=== PATIENT | male | born 1965 | race Caucasian/White ===

== ENCOUNTER → 2018-01-15 19:35 | Outpatient (CLI) | payer MEDICAID ==
[2010-07-27 09:13] VITALS: BMI 31.3
== END | disposition home or self-care (01) ==
LOC: D.SLEEP 08:00
DX: G47.33 Obstructive sleep apnea (adult) (pediatric) (principal)

== ENCOUNTER 2018-04-16 12:50 | Emergency (ER) | payer OTHER ==
[~2018-04-16] VITALS: Ht 190.5 cm; Wt 130.5 kg
[2018-04-16 12:57] VITALS: Ht 190.5 cm; Wt 130.5 kg
[2018-04-16] MEDS ORDERED: NEXIUM20 MG PO (13:07)
[2018-04-16] MEDS ORDERED: HYDROCHLOROTHIA25 MG PO (13:07)
[2018-04-16] MEDS ORDERED: PRINIVIL20 MG PO (13:07)
[2018-04-16] MEDS ORDERED: BAYER CHEWABLE81 MG PO (13:08)
[2018-04-16] MEDS ORDERED: FISH OIL 1,0001 CA1 PO (13:08)
[2018-04-16] MEDS ORDERED: GLUCOSAMINE HC500 MG (13:08)
[2018-04-16] MEDS ORDERED: AXIRON30 MG/1.5 (13:09)
[2018-04-16 13:51] LABS: BASOPHILS 0.7 % (0-2); EOSINOPHILS 2.3 % (0-7); HEMATOCRIT 42.7 % (42.0-54.0); HEMOGLOBIN 14.8 g/dL (13.5-17.5); IMMATURE GRANULOCYTES 0.3 % (0-5); LYMPHOCYTES 33.6 % (15-50); MCH 31.2 pg (26.0-34.0); MCHC 34.7 g/dL (31.0-37.0); MCV 90.1 fL (80.0-100.0); MEAN PLATELET VOLUME 11.7 fL (7.4-10.4); MONOCYTES 6.2 % (2-11); NEUTROPHILS 56.9 % (40-80); PLATELET COUNT 168 10x3/uL (130-400); RBC 4.74 10x6/uL (4.20-6.10); RDW 13.5 % (11.5-14.5); WBC 7.1 10x3/uL (4.8-10.8)
[2018-04-16 14:00] LABS: APTT 27.3 SECONDS (22.8-39.4); INR 1.01 (0.85-1.17); PROTIME 12.9 SECONDS (11.6-15.0)
[2018-04-16 14:05] LABS: ALBUMIN 3.8 g/dL (3.4-5.0); ALKALINE PHOSPHATASE 49 U/L (46-116); ALT (SGPT) 39 U/L (10-68); BILIRUBIN - TOTAL 0.41 mg/dL (0.2-1.3); CALC OSMOLALITY 277 mosm/kg (275-300); CALCIUM 9.4 mg/dL (8.5-10.1); CARBON DIOXIDE 24.9 mmol/L (21.0-32.0); CHLORIDE - SERUM 101 mmol/L (98-107); CREATININE - SERUM 1.1 mg/dL (0.6-1.3); GLUCOSE 143 mg/dL (74-106); POTASSIUM - SERUM 3.7 mmol/L (3.5-5.1); PROTEIN - SERUM 7.2 g/dL (6.4-8.2); SODIUM 138 mmol/L (136-145); UREA NITROGEN 13 mg/dL (7-18); eGFR NON AFRICAN AMERICAN 75 mL/min (90-120)
[2018-04-16 14:16] LABS: CKMB 1.6 U/L (0.0-3.6); CREATINE KINASE 210 UL (21-232)
[2018-04-16 14:22] LABS: TROPONIN-I < 0.017 ng/mL (0.000-0.060)
[2018-04-16 16:27] VITALS: BP 130/87
== END 2018-04-16 16:31 | disposition home or self-care (01) ==
LOC: D.ER 12:50
PROVIDERS: Emergency Medicine
DX: R06.00 Dyspnea, unspecified (principal); K21.9 Gastro-esophageal reflux disease without esophagitis

== ENCOUNTER 2018-04-22 11:41 | Outpatient (CLI) | payer OTHER ==
[~2018-04-22] VITALS: Ht 190.5 cm; Wt 130.5 kg
--- NOTE | ~2018-04-22 | OP ---
PATIENT NAME: HUGO JOHNSON MEDICAL RECORD: [id number] :69 LOCATION:D.CAT ADMISSION DATE: SURGEON: MEETA COVARRUBIAS MD DATE OF OPERATION: 04/22/2018 PROCEDURE: Left heart catheterization, selective coronary angiography, right radial approach. CATHETERS: Radial sheath, Addington catheter. The procedure was well tolerated. The patient returned to the [place]. Sheath was removed. TR band was placed. FINDINGS: Left ventriculography in 30-degree REAL view: Normal wall motion and normal systolic function. CORONARY ANATOMY: LEFT MAIN: Left main is free of disease. LAD: Free of disease in the diagonal system. CIRCUMFLEX: Free of disease in the marginal system. RIGHT CORONARY ARTERY: Dominant artery, gives rise to PDA, free of disease. IMPRESSION: Normal LV systolic function, normal coronary anatomy, noncardiac cause of dyspnea. TRANSINT:[id number] Voice Confirmation ID: [id number] DOCUMENT ID: [id number] MEETA COVARRUBIAS MD CC: [id number] DICTATION DATE: 04/22/18 1528 VOICE ENGINEER: 04/22/18 1629 [facility] [address] [id number]
--- NOTE | ~2018-04-22 | HEMODYNAMI ---
PATIENT:HUGO JOHNSON MEDICAL RECORD: [id number] : 69 LOCATION:D.CAT ADMISSION DATE: 04/22/18 Generatedon:04/22/201815:21 Patient name: HUGO JOHNSON Patient #: [id number] SSN: : 1965 Date of study: 04/22/2018 Page: Of Hemodynamic Procedure Report Patient Data Patient Demographics Procedure consent was obtained First Name: HUGO Gender: Male Last Name: ALEX : 1965 [facility] Initial: NIXON Age: 52 year(s) Patient #: [id number] Race: Unknown Additional ID: [id number] Contact details [address]: [address] [place] [address] rd State: [place] City: [place] Zip code: [address] Past Medical History Allergies: No known allergies Admission Admission Data Admission Date: 04/22/2018 Admission Time: 11:41 Admit Source: Other Height (in.): 73 BSA: 2.48 (m2) Height (cm.): 185.42 BMI: 36.94 (kg/m2) Weight (lbs.): 280 Weight (kg.): 127.01 Lab Results Lab Result Date: 04/22/2018 Lab Result Time: 0:00 Biochemistry Name Units Result Min Max BUN mg/dl 20 --(----)*- 7 18 Creatinine mg/dl 1.2 --(---*)-- 0.6 1.3 CBC Name Units Result Min Max Hemoglobin g/dl 15.1 --(-*--)-- 13.5 17.5 Procedure Procedure Types Cath Procedure Diagnostic Procedure [facility] w/Coronaries Sedation Charges Moderate Sedation up to 15 minutes Procedure Description Procedure Date Procedure Date: 04/22/2018 Procedure Start Time: 15:11 Procedure End Time: 15:20 Procedure Staff Name Function Yifan Medina MD Performing Physician Crow Seo RT Monitor Renetta Gallardo RT Scrub Yadi Pichardo RN Nurse Precious Gilmore RN Nurse Procedure Data Cath Procedure Fluoroscopy Diagnostic fluoroscopy Total fluoroscopy Time: 1.1 time: 1.1 min min Diagnostic fluoroscopy Total fluoroscopy dose: 486 dose: 486 mGy mGy Contrast Material Contrast Material Type Amount (ml) Isovue 300 54 Entry Location Entry Primary Successful Side Size Upsize Upsize Entry Closure Leiva ccessful Closure Location (Fr) 1 (Fr) 2 (Fr) Remarks Device Remarks Radial Right 6 Fr Mechanical artery Short Compression Estimated blood loss: 5 ml Diagnostic catheters Device Type Used For End Catheter Placement DIAGNOSTIC Damariscotta 110cm 5 Procedure Fr catheter ([id number]) Procedure Complications No complications Procedure Medications Medication Administration Route Dosage 0.9% NaCl I.V. 100 ml/hr Oxygen etCO2 Nasal cannula 2 l/min Lidocaine 2% added to field 20 Heparin Flush Bag added to field 2 bags (1000units/500ml NS) Versed I.V. 2 mg Fentanyl I.V. 50 mcg Radial Cocktail added to field 1 syringe (Verapomil 2mg/Nitro 400mcg/Heparin 1500units) Versed I.V. 1 mg Hemodynamics Rest BSA: 2.48 (m2) HGB: 15.1 (g/dl) O2 Consumption: Estimated: 309.82 (ml/min) O2 Co nsumption indexed: Estimated:124.93 (ml/min/m) Heart Rate: 84 (bpm) Pressure Samples Time Site Value (mmHg) Purpose Heart Use Rate(bpm) 15:14 LV 148/-6,15 EDP 97 15:15 AO 91/70(80) Pullback 95 15:15 LV 97/10,13 Pullback 95 Gradients Valve Time Site 1 Site 2 Mean SEP/DFP Peak To Heart Use (mmHg) (sec/min) Peak Rate (mmHg) (bpm) Aortic 15:15 LV AO 3 14 6 95 97/10,13 91/70(80) Calculations Valve P-P Mean Valve Index Valve Source Name Gradient Area Flow (cm2) Aortic 6 3 6 3 Snapshots Pre Cath Intra NCS Post Cath Vital Signs Time Heart Resp SPO2 etCO2 NIBP (mmHg) Rhythm Pain Sedation Rate (ipm) (%) (mmHg) Status Level (bpm) 14:53:09 80 17 95 36.6 127/79(100) NSR 0 (11) 10(A) , No pain 14:57:38 84 19 97 37.4 126/78(99) NSR 0 (11) 10(A) , No pain 15:02:00 89 17 98 41.8 116/76(89) NSR 0 (11) 9(A) , No pain 15:06:24 85 17 98 40.3 119/70(96) NSR 0 (11) 10(A) , No pain 15:10:50 85 16 97 38.1 121/72(91) NSR 0 (11) 10(A) , No pain 15:15:12 95 19 96 34.4 116/72(95) NSR 0 (11) 10(A) , No pain 15:19:36 87 16 97 37.4 119/74(95) NSR 0 (11) 10(A) , No pain Medications Time Medication Route Dose Verified Delivered Reason Notes E ffectiveness by by 14:42:59 0.9% NaCl I.V. 100 Yifan Precious used for ml/hr Adam Mando procedure MD BURR 14:43:06 Oxygen etCO2 2 l/min Yifan Precious used for Nasal Adam Mando procedure cannula MD BURR 14:43:13 Lidocaine 2% added 20ml Yifan Saha for local to vial Adam Adam anesthetic field MD FORREST 14:43:19 Heparin Flush added 2 bags Yifan Yifan used for Bag to Adam Adam procedure (1000units/500ml field MD FORREST NS) 14:56:54 Versed I.V. 2 mg Yifan Precious for Adam Mando sedation MD BURR 14:57:03 Fentanyl I.V. 50 mcg Yifan Precious for Adam Mando sedation MD BURR 14:57:11 Radial Cocktail added 1 Yifan Precious used for (Verapomil to syringe Adam Mando procedure 2mg/Nitro field MD BURR 400mcg/Heparin 1500units) 15:10:29 Versed I.V. 1 mg Yifan Precious for Adam Mando sedation MD [employer] senior [employer] Log Time Note 14:38:16 Informed consent obtained and on chart 14:38:19 Admit Source: Other 14:38:36 Diagnostic Cath status Elective 14:38:37 Yadi Pichardo RN sent for patient. Start room use. 14:38:38 Time tracking: Regular hours (M-F 7:00 - 5:00) 14:38:42 Plan of Care:Hemodynamics will remain stable., Cardiac rhythm will remain stable., Comfort level will be maintained., Respiratory function will remain adequate., Patient/ family verbilizes understanding of procedure., Procedure tolerated without complication., Recovers from procedure without complications.. 14:42:59 0.9% NaCl 100 ml/hr I.V. was administered by Precious Gilmore RN; used for procedure; 14:43:06 Oxygen 2 l/min etCO2 Nasal cannula was administered by Precious Gilmore RN; used for procedure; 14:43:13 Lidocaine 2% 20ml vial added to field was administered by Yifan Medina MD; for local anesthetic; 14:43:19 Heparin Flush Bag (1000units/500ml NS) 2 bags added to field was administered by Yifan Medina MD; used for procedure; 14:45:32 Patient Height : 73 inches 14:45:36 Patient Weight : 280 lbs 14:45:51 H&P Date Dictated: 04/17/2018 Within 30 days and on chart., H&P Addendum completed by physician on day of procedure. (MUST COMPLETE FOR ALL OUTPATIENTS). 14:46:00 Patient allergic to No known allergies 14:47:15 Lab Result : BUN 20 mg/dl 14:47:15 Lab Result : Hemoglobin 15.1 g/dl 14:47:15 Lab Result : Creatinine 1.2 mg/dl 14:47:30 Patient received from Pre/Post Procedure Room to CCL 1 Alert and oriented. Tansferred to table in Supine position. 14:47:31 Warm blankets applied, and richard hugger turned on for patient comfort. 14:47:32 Correct patient and procedure confirmed by team. 14:48:49 ECG and BP/O2 sat monitors applied to patient. 14:48:52 Pre-procedure instructions explained to patient. 14:48:53 Pre-op teaching completed and patient verbalized understanding. 14:48:54 Family in patients room. 14:48:55 Patient NPO since Midnight. 14:48:59 Is patient on blood thinner?Yes 14:49:03 ACC The patient was administered the following blood thiners within the last 24 hours: ACCAspirin 14:49:05 Patient diabetic? No. 14:49:09 Previous problem with sedation/anesthesia? No ? 14:49:10 Snore? Yes 14:49:11 Sleep apnea? Yes 14:49:12 Deviated septum? No 14:49:13 Opens mouth fully? Yes 14:49:18 Sticks out tongue? Yes 14:49:20 Airway obstruction? No ? 14:49:23 Dentures? No ? 14:49:25 Modified Izaiah's test Ulnar < 7 seconds 14:49:27 Patient pain scale 0/10 ?. 14:49:37 IV patent on arrival in left hand with 0.9% NaCl at [facility]. 14:49:40 Lab results completed and on chart. 14:49:48 Alarms reviewed by R. N. 14:49:49 Sharps counted by scrub and verified by R.N. 14:49:54 Right Radial & Right Groin area was prepped with chlora-prep and draped in sterile fashion 14:51:47 Vital chart was started 14:51:50 Baseline sample Acquired. 14:51:53 Rhythm: sinus rhythm 14:51:54 Full Disclosure recording started 14:52:05 Use device set Radial Dx or PCI 14:52:08 ACIST Syringe (19478) opened to sterile field. 14:52:10 Bag Decanter (2002S) opened to sterile field. 14:52:11 ACIST Manifold (08794) opened to sterile field. 14:52:11 ACIST Hand Control (83914) opened to sterile field. 14:52:12 Tegaderm 4 x 4 (1626W) opened to sterile field. 14:52:14 Medline Cath Pack ([id number]) opened to sterile field. 14:52:15 DIAGNOSTIC WIRE .035 260cm J wire (937736) opened to sterile field. 14:52:38 MBrace Wrist Support ([id number]) opened to sterile field. 14:56:12 Physician arrived 14:56:12 --------ALL STOP TIME OUT------ 14:56:13 Final Timeout: patient, procedure, and site verified with staff and physician. All members of the team are in agreement. 14:56:14 Right Radial & Right Groin site verified by team. 14:56:16 Physical assessment completed. ASA score P 2 - A patient with mild systemic disease as per Yifan Medina MD. 14:56:19 Sedation plan: IV Moderate Sedation Medication:Versed, Fentanyl 14:56:54 Versed 2 mg I.V. was administered by Precious Gilmore RN; for sedation; 14:57:03 Fentanyl 50 mcg I.V. was administered by Precious Gilmore RN; for sedation; 14:57:11 Radial Cocktail (Verapomil 2mg/Nitro 400mcg/Heparin 1500units) 1 syringe added to field was administered by Precious Gilmore RN; used for procedure; 15:03:06 Zero performed for pressure channel P1 15:10:29 Versed 1 mg I.V. was administered by Precious Gilmore RN; for sedation; 15:11:48 Procedure started. 15:11:52 Local anesthetic to right radial artery with Lidocaine 2% by Yifan Medina MD.INITIAL ACCESS ONLY 15:12:09 SHEATH 6FR Slender ([id number]) opened to sterile field. 15:12:18 A 6 Fr Short sheath was inserted into the Right Radial artery 15:13:37 A DIAGNOSTIC Damariscotta 110cm 5 Fr catheter ([id number]) was advanced over the wire and used for Procedure. 15:14:03 LV gram done using REAL 15:14:05 Injector settings: Ml/sec: 5, Volume: 15, 15:14:11 LV hemodynamics recorded. 15:14:45 EF : 55 % 15:15:01 LCA angiography performed. 15:15:43 RCA angiography performed. 15:16:19 RCA angiography performed. 15:16:33 Catheter removed. 15:17:02 TR BAND Large ([id number]) opened to sterile field. 15:17:09 Sheath removed intact; hemostasis achieved with Mechanical Compression to the Right Radial artery. 15:17:10 Procedure ended.(Physican Out) 15:17:28 Fluoroscopy time 01.10 minutes. 15:17:32 Fluoroscopy dose: 486 mGy 15:17:32 Flurop Dose total: 486 15:18:16 Contrast amount:Isovue 300 54ml. 15:18:18 Sharps counted by scrub and verified by R.N. 15:18:21 TR band inflated with 11cc of air. 15:18:28 Post Procedure Pulses reassessed and unchanged 15:18:30 Post-procedure physical assessment completed. ASA score P 2 - A patient with mild systemic disease as per Yifan Medina MD. 15:18:32 Post procedure rhythm: unchanged. 15:18:34 Estimated blood loss: 5 ml 15:18:44 Post procedure instruction explained to patient.Patient verbalizes understanding. 15:19:09 Procedure type changed to Cath procedure, Diagnostic procedure, LHC, LHC w/Coronaries, Sedation Charges, Moderate Sedation up to 15 minutes 15:19:41 Procedure and supply charges have been captured, reviewed, submitted and are correct. 15:19:43 Procedure Complication : No complications 15:19:45 Vital chart was stopped 15:19:45 See physician's report for complete and final results. 15:19:46 Report given to Pre/Post Procedure Room. 15:19:49 Patient transfered to Pre/Post Procedure Room with Stretcher. 15:20:09 Procedure ended. 15:20:09 Full Disclosure recording stopped 15:20:12 End room use (Document Last) Device Usage Item Name Manufacture Quantity Catalog Hospital Part Current Minima l Lot# / Number Charge Number Stock Stock Serial# Code ACIST Acist 1 37979 [id number] 273794 044603 20 Syringe Medical (12608) Systems Inc Bag Decanter Microtek 1 2001S 523745 11112 862122 5 (2001S) Medical Inc. ACIST Acist 1 22439 064897 610838 348914 5 Manifold Medical (48630) Systems Inc ACIST Hand Acist 1 17793 866725 409894 774196 5 Control Medical (27322) Systems Inc Tegaderm 4 x 3M 1 1626W 203196 958306 156410 5 4 (1626W) Medline Cath Medline 1 [id number] 456629 70460 022126 5 Pack ([id number]) DIAGNOSTIC [facility] Giorgio 1 545062 210025 027241 910142 30 WIRE .035 260cm J wire (331931) MBrace Wrist Advanced 2 140-0250-00 981465 10883 190803 5 Support Vascular ([id number]) Dynamics SHEATH 6FR Terumo 1 [id number] 113639 833103 347875 40 Slender ([id number]) DIAGNOSTIC Terumo 1 40-5179 817021 704717 801514 5 Damariscotta 110cm 5 Fr catheter (846678) TR BAND Terumo 1 [id number] 256041 749437 756644 40 Large ([id number]) Signature Audit [place] Stage Time Signature Unsigned Intra-Procedure 04/22/2018 Crow Seo 3:21:33 PM RT(R) Signatures Monitor : Crow Seo RT Signature : Date : Time : [address] [place] [address]
[~2018-04-22 11:41] MED LIST: AXIRON30 MG/1.5; BAYER CHEWABLE81 MG PO; FISH OIL 1,0001 CA1 PO; GLUCOSAMINE HC500 MG; HYDROCHLOROTHIA25 MG PO; NEXIUM20 MG PO; PRINIVIL20 MG PO
[2018-04-22 12:45] LABS: BASOPHILS 0.5 % (0-2); EOSINOPHILS 2.4 % (0-7); HEMATOCRIT 42.6 % (42.0-54.0); HEMOGLOBIN 15.1 g/dL (13.5-17.5); IMMATURE GRANULOCYTES 0.1 % (0-5); LYMPHOCYTES 36.3 % (15-50); MCH 31.2 pg (26.0-34.0); MCHC 35.4 g/dL (31.0-37.0); MEAN PLATELET VOLUME 11.4 fL (7.4-10.4); MONOCYTES 5.9 % (2-11); NEUTROPHILS 54.8 % (40-80); PLATELET COUNT 164 10x3/uL (130-400); RBC 4.84 10x6/uL (4.20-6.10); RDW 13.5 % (11.5-14.5); WBC 7.9 10x3/uL (4.8-10.8)
[2018-04-22 12:46] VITALS: BP 138/82; Ht 190.5 cm; Wt 130.5 kg
[2018-04-22 13:05] LABS: ANION GAP 14.3 mmol/L (8-16); CALCIUM 9.5 mg/dL (8.5-10.1); CARBON DIOXIDE 26.4 mmol/L (21.0-32.0); CREATININE - SERUM 1.2 mg/dL (0.6-1.3); POTASSIUM - SERUM 3.7 mmol/L (3.5-5.1)
== END 2018-04-22 17:35 | disposition home or self-care (01) ==
LOC: D.CATH 11:41
PROVIDERS: Internal Medicine Interventional Cardiology
DX: R06.00 Dyspnea, unspecified (principal); Z01.812 Encounter for preprocedural laboratory examination

== ENCOUNTER → 2018-06-02 13:50 | Outpatient (CLI) | payer OTHER ==
[2018-04-22 12:46] VITALS: BMI 35.9
[2018-06-06 03:10] LABS: IMMUNOGLOBULIN E 35 IU/mL (0-100)
== END | disposition home or self-care (01) ==
LOC: D.RT 13:50
PROVIDERS: Internal Medicine Pulmonary Disease
DX: R06.09 Other forms of dyspnea (principal)